=== PATIENT | male | born 1975 | race Caucasian/White ===

== ENCOUNTER 2017-12-01 19:56 | Emergency (ER) | payer OTHER ==
--- NOTE | 2017-12-01 20:55 | EDM.PDOC ---
ED HPI GENERAL MEDICAL PROBLEM - General Chief Complaint: Laceration Stated Complaint: left hand laceration Time Seen by Provider: 12/01/17 20:34 Source of Information: Reports: Patient History Limitations: Reports: No Limitations - History of Present Illness INITIAL COMMENTS - FREE TEXT/NARRATIVE: Patient comes to ER with hand laceration that was sustained from contact with a piece of steel while he was at work. Bleeding well controlled. No loss of function. No numbness/tingling. Denies other injury/complaints. Tetanus is UTD. Left Hand Pain Score (Numeric/FACES): 1 - Related Data Allergies Allergy/AdvReac Type Severity Reaction Status Date / Time No Known Allergies Allergy Verified 12/01/17 20:10 Home Meds: Home Meds Hydrocodone/Acetaminophen [[place] 5-325] 1 tab PO QID PRN 12/01/17 [History] Past Medical History Musculoskeletal History: Reports: Other (See Below) (bilateral rotator cuff injuries) Social & Family History - Tobacco Use Smoking Status *Q: Never Smoker - Alcohol Use Alcohol Use History: No - Recreational Drug Use Recreational Drug Use: No ED ROS GENERAL - Review of Systems Review Of Systems: ROS reveals no pertinent complaints other than HPI. ED EXAM, SKIN/RASH Exam: See Below Exam Limited By: No Limitations General Appearance: Alert, WD/WN, No Apparent Distress Eye Exam: Bilateral Eye: EOMI, PERRL Head: Atraumatic, Normocephalic Neck: Supple Respiratory/Chest: No Respiratory Distress Extremities: Other (Tendon function intact left hand/fingers. No loss of function. NVI) Neurological: Alert, Oriented, Normal Cognition, Normal Gait, No Motor/Sensory Deficits Psychiatric: Normal Affect, Normal Mood Skin: Warm, Dry, Other (2cm laceration on back of left hand. Clean. Into subdermis. ) Location, Skin: Upper Extremity, Left ED SKIN PROCEDURES - Laceration/Wound Repair Dorsal Hand Lac/Wound length In cm: 2 Appearance: Subcutaneous, Linear, Clean Distal NVT: Neuro & Vascular Intact, No Tendon Injury Skin Prep: Saline Saline Irrigation (cc's): 30 Exploration/Debridement/Repair: Wound Explored, In a Bloodless Field, Explored to Base Closed with: Dermabond, Steri-Strips Sterile Dressing Applied: Nurse Tetanus Status Addressed: Yes Complications: No Course - Vital Signs Last Recorded V/S: Last Vital Signs Temp 37.1 C 12/01/17 20:31 Pulse 100 12/01/17 20:31 Resp 18 12/01/17 20:31 BP 140/86 12/01/17 20:31 Pulse Ox 100 12/01/17 20:31 - Re-Assessments/Exams Free Text/Narrative Re-Assessment/Exam: 12/01/17 21:10 Patient elected to have wound glued after pros/cons of tissue glue vs sutures reviewed. He felt strongly that he could keep the area clean and dry and free from trauma. Wound glued. Steri strips applied over glue. Wound care instructions given. He is to follow up as needed. OK to return to work next scheduled shift. Departure - Departure Time of Disposition: 20:54 Disposition: Home, Self-Care 01 Condition: Good Clinical Impression: Hand laceration Qualifiers: Encounter type: initial encounter Foreign body presence: without foreign body Laterality: left Qualified Code(s): S61.412A - Laceration without foreign body of left hand, initial encounter - Discharge Information Instructions: Stitches, [place], or Adhesive Wound Closure, [id number] Referrals: Jessica Garcia LAT[facility] SET UP PERSON [Primary Care Provider] - Forms: ED Department Discharge Additional Instructions: Keep wound clean and DRY as discussed. Follow up as needed if problems or signs of infection develop.
== END 2017-12-01 21:05 | disposition home or self-care (01) ==
LOC: LL.ED 19:56
DX: S61.412A Laceration without foreign body of left hand, initial encounter (principal); Z88.5 Allergy status to narcotic agent; W45.8XXA Other foreign body or object entering through skin, initial encounter; Y99.0 Civilian activity done for income or pay
CPT/HCPCS: 12001; 99282

== ENCOUNTER 2018-08-07 19:39 | Emergency (ER) | payer OTHER ==
[2018-08-07] MEDS ORDERED: Codeine/guaiFENesin 100-10 MG/5 ML Syrup 5 ML Cup PO ONE (20:45)
--- NOTE | 2018-08-07 20:52 | EDM.PDOC ---
ED HPI GENERAL MEDICAL PROBLEM - General Chief Complaint: Respiratory Problem Stated Complaint: Right rib pain/ cold s/s Time Seen by Provider: 08/07/18 20:45 Source of Information: Reports: Patient History Limitations: Reports: No Limitations - History of Present Illness INITIAL COMMENTS - FREE TEXT/NARRATIVE: Patient comes in complaining of right sided rib pain that has been present since he slipped and hit right lateral check on to the edge of a metal bin a week ago. Says that he has developed cold symptoms over the last two days, including runny nose/cough/mild sore throat. The cough has aggravated the rib pain significantly today. This is why he presented today. No fevers/chills. No SOB. No other pain complaints. No other reported injuries. Right Thoracic Pain Score (Numeric/FACES): 6 - Related Data Allergies Allergy/AdvReac Type Severity Reaction Status Date / Time No Known Allergies Allergy Verified 08/07/18 19:40 Home Meds: Home Meds Codeine/guaiFENesin [guaiFENesin-Codeine Syrup] 120 ml PO ASDIRECTED PRN #1 bottle 08/07/18 [Rx] Pseudoephedrine [Sudogest] 1 tab PO ASDIRECTED PRN 08/07/18 [History] Past Medical History Musculoskeletal History: Reports: Other (See Below) Other Musculoskeletal History: Rotator cuff injury Psychiatric History: Reports: Addiction - Past Surgical History HEENT Surgical History: Reports: Myringotomy w Tube(s) Musculoskeletal Surgical History: Reports: Shoulder Surgery Social & Family History - Tobacco Use Smoking Status *Q: Never Smoker - Recreational Drug Use Recreational Drug Use: No ED ROS GENERAL - Review of Systems Review Of Systems: See Below Constitutional: Reports: No Symptoms HEENT: Reports: Rhinitis, Throat Pain. Denies: Ear Pain, Eye Discharge, Sinus Problem, Throat Swelling, Vertigo, Vision Change Respiratory: Reports: Pleuritic Chest Pain, Cough. Denies: Shortness of Breath , Wheezing, Sputum, Hemoptysis Cardiovascular: Reports: Chest Pain (right lower lateral ribs). Denies: Dyspnea on Exertion, Edema, Lightheadedness, Orthopnea, Palpitations, Syncope GI/Abdominal: Reports: No Symptoms. Denies: Abdominal Pain : Reports: No Symptoms Musculoskeletal: Reports: No Symptoms (no acute changes), Neck Pain Skin: Reports: No Symptoms. Denies: Bruising Neurological: Reports: No Symptoms Psychiatric: Reports: No Symptoms Hematologic/Lymphatic: Reports: No Symptoms ED EXAM, GENERAL - Physical Exam Exam: See Below Exam Limited By: No Limitations General Appearance: Alert, WD/WN, No Apparent Distress Eye Exam: Bilateral Eye: EOMI, PERRL Ears: Normal External Exam, Normal Canal, Hearing Grossly Normal, Normal TMs Nose: Normal Inspection Throat/Mouth: Normal Inspection, Normal Lips, Normal Oropharynx, Normal Voice, No Airway Compromise Head: Atraumatic, Normocephalic Neck: Normal Inspection, Supple, Non-Tender, Full Range of Motion Respiratory/Chest: No Respiratory Distress, Lungs Clear, Normal Breath Sounds, No Accessory Muscle Use, Other (chest tender lateral lower right ribs. No crepitus. No bruising. No swelling. ) Cardiovascular: No Murmur, Tachycardia Peripheral Pulses: 2+: Radial (L), Radial (R) GI/Abdominal: Normal Bowel Sounds, Soft, Non-Tender, No Distention (Male) Exam: Deferred Rectal (Males) Exam: Deferred Back Exam: Normal Inspection, Full Range of Motion. No: CVA Tenderness (L), CVA Tenderness (R), Muscle Spasm, Paraspinal Tenderness, Vertebral Tenderness Extremities: Normal Inspection, Non-Tender, Normal Capillary Refill Neurological: Alert, Oriented, Normal Cognition, Normal Gait, No Motor/Sensory Deficits Psychiatric: Normal Affect, Normal Mood Skin Exam: Warm, Dry, Intact, Normal Color, No Rash Course - Vital Signs Last Recorded V/S: Last Vital Signs Temp 36.6 C 08/07/18 20:03 Pulse 109 H 08/07/18 20:03 Resp 18 08/07/18 20:03 BP 141/83 H 08/07/18 20:03 Pulse Ox 99 08/07/18 20:03 - Orders/Labs/Meds Orders: Active Orders 24 hr Category Date Time Status Ribs 2V w Chest Rt [CR] Stat Exams 08/07/18 19:46 Taken Meds: Medications Discontinued Medications Generic Name Dose Route Start Last Admin Trade Name Freq PRN Reason Stop Dose Admin Guaifenesin/Codeine Phosphate 10 ml 08/07/18 20:45 08/07/18 21:01 Robitussin Ac PO 08/07/18 20:46 10 ml ONETIME ONE Administration - Re-Assessments/Exams Free Text/Narrative Re-Assessment/Exam: 08/07/18 21:42 Xray of chest/right ribs performed. No evidence of consolidation/pneumonia noted. No obvious rib fracture noted. Still pending official radiology review. Based on history, suspect bruised rib/soft tissue injury. Cannot rule out fracture. [place] database searched and multiple prescriptions for Percocet/[place]/Tramadol found through March 2018 This was discussed with the patient, who said that he was taking the medication due to his rotator cuff injury/surgery. Patient was given small amount of Robitussin with codeine (120ml) and was instructed that he must follow up with his primary provider if he feels that he needs additional pain medications other than OTC meds. Incentive spirometry performed and patient instructed as to how to perform this himself at home. It was recommended that he do this at least 4 times a day for the next few weeks while his injury is healing. He is to follow up otherwise as needed. He did not wish to have work restrictions put into place and said that he was able to work without issue over the past year while taking the other pain medications. Departure - Departure Time of Disposition: 21:00 Disposition: Home, Self-Care 01 Condition: Good Clinical Impression: Rib pain on right side, URI, acute - Discharge Information *PRESCRIPTION DRUG MONITORING PROGRAM REVIEWED*: Yes *COPY OF PRESCRIPTION DRUG MONITORING REPORT IN PATIENT RAMON: Yes Prescriptions: Codeine/guaiFENesin [guaiFENesin-Codeine Syrup] 120 ml PO ASDIRECTED PRN #1 bottle PRN Reason: Cough Referrals: Jessica Garcia MASON[employer] SUPERVISOR [Primary Care Provider] - Forms: ED Department Discharge Additional Instructions: Follow up with your primary provider regarding injury and any additional requests for controlled pain medication. Perform breathing exercises as discussed at least 4 times a day while you are recovering from the injury. - My Orders Last 24 Hours: My Active Orders 08/07/18 19:46 Ribs 2V w Chest Rt [CR] Stat - Assessment/Plan Last 24 Hours: My Active Orders 08/07/18 19:46 Ribs 2V w Chest Rt [CR] Stat
== END 2018-08-07 21:08 | disposition home or self-care (01) ==
LOC: LL.ED 19:39
DX: J06.9 Acute upper respiratory infection, unspecified (principal); R07.81 Pleurodynia
CPT/HCPCS: 71101; 99283; A9270